=== PATIENT | female | born 1955 | race Caucasian/White ===

== ENCOUNTER 2022-10-23 19:59 | Observation (INO) | payer OTHER ==
[2022-10-23] MEDS ORDERED: ACETAMINOPHEN 1000 MG/100 ML BAG IVPB ONE (21:16)
[2022-10-23 21:36] LABS: BASO % 0.3 % (0-2.0); EOS % 0.6 % (0-4.5); HEMATOCRIT 37.6 % (32.4-45.2); HEMOGLOBIN 12.2 GM/dL (10.7-15.3); LYMPH % 15.8 % (8-40); MCH 28.8 pg (25.7-33.7); MCHC 32.4 g/dl (32.0-36.0); MEAN CELL VOLUME 88.7 fl (80-96); MEAN PLT VOLUME 9.9 fl (7.5-11.1); MONO % 3.3 % (3.8-10.2); PLATELET COUNT 122 10^3/uL (134-434); RBC 4.23 M/mm3 (3.60-5.2); RDW 15.7 % (11.6-15.6); WHITE BLOOD COUNT 7.2 K/mm3 (4.0-10.0)
[2022-10-23] MEDS ORDERED: ACETAMINOPHEN INJECTION 100 ML IVPB ONE (21:41)
[2022-10-23 21:47] LABS: INR 1.14 (0.83-1.09); PROTHROMBIN TIME (PATIENT) 13.2 SEC (9.7-13.0)
[2022-10-23] MEDS ORDERED: METOCLOPRAMIDE HCL INJECTION 10 MG/2 ML VIAL IVPUSH ONE (21:47)
[2022-10-23 21:49] LABS: ACTIVATED PTT 28.9 SECONDS (25.2-36.5)
[2022-10-23] MEDS ORDERED: CARVEDILOL 6.25 MG TABLET (FP) PO ONE (22:27)
[2022-10-23] MEDS ORDERED: LORazepam 2 MG/ML SDV VIAL IVPUSH ONE (22:31)
[2022-10-23 22:49] LABS: CALCIUM 9.1 mg/dL (8.5-10.1)
[2022-10-23 22:50] LABS: ALBUMIN 3.6 g/dl (3.4-5.0)
[2022-10-23] MEDS ORDERED: METOCLOPRAMIDE HCL INJECTION 10 MG/2 ML VIAL ONE (22:50)
[2022-10-23] MEDS ORDERED: CARVEDILOL 6.25 MG TABLET (FP) ONE (22:50)
[2022-10-23 22:53] LABS: CREATININE 6.4 mg/dL (0.55-1.3)
[2022-10-23 22:55] LABS: BILIRUBIN,TOTAL 0.4 mg/dL (0.2-1); TOT PROT 7.5 g/dl (6.4-8.2)
[2022-10-23 23:06] LABS: BLOOD UREA NITROGEN 38.3 mg/dL (7-18)
[2022-10-24] MEDS ORDERED: HEPARIN NA (PORCINE) 5,000 UNITS/ML 1ML VIAL SQ SCH (06:00)
[2022-10-24] MEDS ORDERED: ACETAMINOPHEN 325 MG TABLET (FP) PO PRN (07:55)
[2022-10-24 08:01] VITALS: BMI 22.7
[2022-10-24] MEDS ORDERED: NIFEdipine E.R 60 MG TABLET PO SCH (10:00)
[2022-10-24] MEDS ORDERED: CARVEDILOL 6.25 MG TABLET (FP) PO SCH (10:00)
[2022-10-24 11:08] LABS: BASO % 1.3 % (0-2.0); EOS % 1.1 % (0-4.5); HEMATOCRIT 35.4 % (32.4-45.2); HEMOGLOBIN 11.8 GM/dL (10.7-15.3); LYMPH % 49.9 % (8-40); MCH 30.1 pg (25.7-33.7); MCHC 33.4 g/dl (32.0-36.0); MEAN CELL VOLUME 90.1 fl (80-96); MEAN PLT VOLUME 10.4 fl (7.5-11.1); MONO % 7.8 % (3.8-10.2); NEUT % 39.9 % (42.8-82.8); PLATELET COUNT 124 10^3/uL (134-434); RBC 3.93 M/mm3 (3.60-5.2); RDW 15.7 % (11.6-15.6); WHITE BLOOD COUNT 4.3 K/mm3 (4.0-10.0)
[2022-10-24] MEDS ORDERED: LOSARTAN POTASSIUM 50 MG TABLET PO SCH (11:15)
[2022-10-24 11:26] LABS: CHLORIDE 102 mmol/L (98-107); SODIUM 136 mmol/L (136-145)
[2022-10-24 11:37] LABS: CALCIUM 8.8 mg/dL (8.5-10.1)
[2022-10-24 11:38] LABS: ANION GAP 10 MMOL/L (8-16); BLOOD UREA NITROGEN 45.7 mg/dL (7-18); CO2 23 mmol/L (21-32); GLUCOSE,RANDOM 120 mg/dL (74-106); MAGNESIUM 2.1 mg/dL (1.8-2.4)
[2022-10-24 11:39] LABS: ALBUMIN 3.2 g/dl (3.4-5.0)
[2022-10-24 11:40] LABS: SGOT/AST 20 U/L (15-37)
[2022-10-24 11:41] LABS: PHOSPHOROUS 3.8 mg/dL (2.5-4.9); SGPT/ALT 19 U/L (13-61)
[2022-10-24 11:42] LABS: BILIRUBIN,TOTAL 0.4 mg/dL (0.2-1); TOT PROT 6.8 g/dl (6.4-8.2)
[2022-10-24 11:43] LABS: ALK PHOS 54 U/L (45-117)
[2022-10-24 11:48] LABS: CREATININE 8.4 mg/dL (0.55-1.3)
[2022-10-24 13:27] VITALS: BP 150/84; PULSE 76; RESP 19; TEMP 98.7
[2022-10-24] MEDS ORDERED: ATORVASTATIN CA 20 MG TABLET (FP) PO SCH (22:00)
== END 2022-10-24 15:40 | disposition home or self-care (01) ==
LOC: JER 19:59 → JERBED 23:56 → J6S 10-24 03:30
PROVIDERS: ADMIT Internal Medicine; ATTEND Internal Medicine
PROC: 3E033NZ Introduction of Analgesics, Hypnotics, Sedatives into Peripheral Vein, Percutaneous Approach (ICD-10-PCS; principal; 2022-10-23)
PROC: 3E033GC Introduction of Other Therapeutic Substance into Peripheral Vein, Percutaneous Approach (ICD-10-PCS; 2022-10-23)
PROC: 3E013GC Introduction of Other Therapeutic Substance into Subcutaneous Tissue, Percutaneous Approach (ICD-10-PCS; 2022-10-23)
DX: I16.0 Hypertensive urgency (principal); I12.0 Hypertensive chronic kidney disease with stage 5 chronic kidney disease or end stage renal disease; R51.9 Headache, unspecified; N18.6 End stage renal disease; E78.5 Hyperlipidemia, unspecified; Z99.2 Dependence on renal dialysis; Z90.5 Acquired absence of kidney; Z85.528 Personal history of other malignant neoplasm of kidney
CPT/HCPCS: 0241U-QW; 36415; 70450-TC; 80053; 83735; 84100; 85025; 85027; 85610; 85730; 93005; 93010; 96372; 96374; 96375; 99285-25; G0378; J1644

== ENCOUNTER 2022-10-30 21:12 | Emergency (ER) | payer OTHER ==
[2022-10-30 21:20] VITALS: TEMP 98; BMI 21.9
[2022-10-30] MEDS ORDERED: SODIUM CHLORIDE 0.9% 500 ML INFUS.BAG IV ONE (21:58)
[2022-10-30] MEDS ORDERED: METOCLOPRAMIDE HCL INJECTION 10 MG/2 ML VIAL IVPB ONE (21:58)
[2022-10-30] MEDS ORDERED: METOCLOPRAMIDE HCL INJECTION 10 MG/2 ML VIAL ONE (22:11)
[2022-10-30 22:16] LABS: BASO % 0.4 % (0-2.0); EOS % 0.9 % (0-4.5); HEMATOCRIT 32.4 % (32.4-45.2); MCHC 33.8 g/dl (32.0-36.0); MEAN CELL VOLUME 88.5 fl (80-96); MEAN PLT VOLUME 9.1 fl (7.5-11.1); MONO % 3.9 % (3.8-10.2); NEUT % 80.8 % (42.8-82.8); PLATELET COUNT 133 10^3/uL (134-434); RBC 3.66 M/mm3 (3.60-5.2); RDW 16.2 % (11.6-15.6); WHITE BLOOD COUNT 8.5 K/mm3 (4.0-10.0)
[2022-10-30 22:39] LABS: CALCIUM 9.3 mg/dL (8.5-10.1)
[2022-10-30 22:40] LABS: ALBUMIN 3.7 g/dl (3.4-5.0); BLOOD UREA NITROGEN 28.7 mg/dL (7-18)
[2022-10-30 22:43] LABS: CREATININE 6.4 mg/dL (0.55-1.3)
[2022-10-30 22:44] LABS: BILIRUBIN,TOTAL 0.4 mg/dL (0.2-1); TOT PROT 7.6 g/dl (6.4-8.2)
[2022-10-30 22:56] LABS: MAGNESIUM 1.9 mg/dL (1.8-2.4)
[2022-10-30 23:00] LABS: PHOSPHOROUS 3.7 mg/dL (2.5-4.9)
[2022-10-30] MEDS ORDERED: ACETAMINOPHEN 1000 MG/100 ML BAG IVPB ONE (23:23)
[2022-10-30] MEDS ORDERED: ACETAMINOPHEN INJECTION 100 ML IVPB ONE (23:26)
[2022-10-30 23:33] VITALS: PULSE 90
[2022-10-31 00:35] VITALS: BP 164/84; RESP 20
== END 2022-10-31 00:39 | disposition home or self-care (01) ==
LOC: JER 21:12
PROC: 3E033NZ Introduction of Analgesics, Hypnotics, Sedatives into Peripheral Vein, Percutaneous Approach (ICD-10-PCS; principal; 2022-10-30)
PROC: 3E033GC Introduction of Other Therapeutic Substance into Peripheral Vein, Percutaneous Approach (ICD-10-PCS; 2022-10-30)
DX: R11.2 Nausea with vomiting, unspecified (principal); R51.9 Headache, unspecified; Z99.2 Dependence on renal dialysis
CPT/HCPCS: 36415; 70450-TC; 80053; 83690; 83735; 84100; 84484; 85025; 93005; 93010; 96374; 96375; 99285-25

== ENCOUNTER 2022-11-21 04:05 | Day surgery (SDC) | payer OTHER ==
[2022-11-20 08:43] VITALS: BMI 21.9
[~2022-11-21 04:05] MED LIST: HEPARIN NA (PORCINE) 5,000 UNITS/ML 1ML VIAL TP ONE; LIDOCAINE HCL 1%, 10 MG/ML (20ML VIAL) NR ONE
[2022-11-21] MEDS ORDERED: LIDOCAINE HCL 1%, 10 MG/ML (10ML VIAL) MDV ONE (07:13)
[2022-11-21] MEDS ORDERED: PAPAVERINE HCL 30 MG/1 ML 10 ML VIAL NR ONE (07:13)
[2022-11-21] MEDS ORDERED: HEPARIN NA (PORCINE) 5,000 UNITS/ML 1ML VIAL ONE (07:14)
[2022-11-21] MEDS ORDERED: POVIDONE-IODINE OINTMENT 10% - 28.4 GM TUBE ONE (07:14)
[2022-11-21] MEDS ORDERED: MIDAZOLAM HCL 2 MG/2 ML SINGLE DOSE VIAL ONE (07:27)
[2022-11-21] MEDS ORDERED: PROPOFOL 40 ML ONE (07:27)
[2022-11-21] MEDS ORDERED: ceFAZolin SODIUM 1 GM VIAL IVPB ONE (08:06)
[2022-11-21] MEDS ORDERED: LIDOCAINE HCL 1%, 10 MG/ML (20ML VIAL) NR ONE (08:15)
[2022-11-21] MEDS ORDERED: HEPARIN NA (PORCINE) 5,000 UNITS/ML 1ML VIAL TP ONE (08:42)
[2022-11-21] MEDS ORDERED: PROPOFOL 20 ML ONE (09:04)
[2022-11-21] MEDS ORDERED: oxyCODONE HCL 5 MG TABLET PO PRN (09:29)
[2022-11-21] MEDS ORDERED: PROMETHAZINE HCL 25 MG/1 ML VIAL IVPB PRN (09:29)
[2022-11-21] MEDS ORDERED: ONDANSETRON 4 MG/2 ML VIAL IVPUSH PRN (09:29)
[2022-11-21] MEDS ORDERED: ACETAMINOPHEN 325 MG TABLET (FP) PO PRN (09:29)
[2022-11-21 10:47] VITALS: PULSE 62
[2022-11-21 10:48] VITALS: TEMP 97.7
[2022-11-21] MEDS ORDERED: oxyCODONE HCL 5 MG TABLET ONE (12:25)
[2022-11-21 13:51] VITALS: BP 125/65; RESP 20
== END 2022-11-21 13:00 | disposition home or self-care (01) ==
LOC: JASU-SURG 04:05
PROVIDERS: ATTEND Surgery
PROC: 03WY0JZ Revision of Synthetic Substitute in Upper Artery, Open Approach (ICD-10-PCS; principal; 2022-11-21 08:00)
DX: T82.858A Stenosis of other vascular prosthetic devices, implants and grafts, initial encounter (principal); I12.0 Hypertensive chronic kidney disease with stage 5 chronic kidney disease or end stage renal disease; N18.6 End stage renal disease; Z99.2 Dependence on renal dialysis; I77.0 Arteriovenous fistula, acquired; Y82.8 Other medical devices associated with adverse incidents; Y92.9 Unspecified place or not applicable; Y83.8 Other surgical procedures as the cause of abnormal reaction of the patient, or of later complication, without mention of misadventure at the time of the procedure
CPT/HCPCS: 36415; 84132; 94760; J1644

== ENCOUNTER → 2024-08-20 | Day surgery (SDC) | payer OTHER ==
[2024-08-17 17:13] VITALS: BMI 22.4
[~2024-08-20] MED LIST changes: +ACETAMINOPHEN INJECTION 100 ML ONE; +DEXAMETHASONE SOD PHOSPHATE 4 MG/1 ML VIAL ONE; -HEPARIN NA (PORCINE) 5,000 UNITS/ML 1ML VIAL TP ONE; +KETOROLAC TROMETHAMINE 30 MG/1 ML VIAL ONE; -LIDOCAINE HCL 1%, 10 MG/ML (20ML VIAL) NR ONE; +LIDOCAINE HCL/PF 2% SDV 5ML VIAL ONE; +MIDAZOLAM HCL 2 MG/2 ML SINGLE DOSE VIAL ONE; +ONDANSETRON 4 MG/2 ML VIAL IVPUSH PRN; +ONDANSETRON 4 MG/2 ML VIAL ONE; +PROMETHAZINE HCL 25 MG/1 ML VIAL IVPB PRN; +PROPOFOL 20 ML ONE; +ceFAZolin SODIUM 1 GM VIAL ONE; +oxyCODONE HCL 5 MG TABLET ONE; +oxyCODONE HCL 5 MG TABLET PO PRN
[2024-08-20] MEDS: BACITRACIN ZINC 15 GM TUBE TOPICAL OINTMENT TP ONE
[2024-08-20] MEDS: LIDOCAINE HCL 1%, 10 MG/ML (20ML VIAL) INF ONE
[2024-08-20] MEDS: ceFAZolin 2 GRAM PREMIX BAG IVPB ONE (10:12)
[2024-08-20] MEDS: ACETAMINOPHEN 1000 MG/100 ML BAG IVPB ONE (11:22)
[2024-08-20] MEDS: LACTATED RINGERS SOLUTION 1,000 ML IV SCH (11:24)
[2024-08-20 12:15] VITALS: TEMP 97.6
[2024-08-20] MEDS: oxyCODONE HCL 5 MG TABLET PO PRN (12:48)
[2024-08-20 13:20] VITALS: BP 110/58; PULSE 80; RESP 18
== END | disposition home or self-care (01) ==
LOC: JASU-SURG 04:17
PROVIDERS: ATTEND Surgery
PROC: 03LC0ZZ Occlusion of Left Radial Artery, Open Approach (ICD-10-PCS; principal; 2024-08-20 09:30)
DX: T82.898A Other specified complication of vascular prosthetic devices, implants and grafts, initial encounter (principal); Z85.528 Personal history of other malignant neoplasm of kidney; Z90.5 Acquired absence of kidney; Z99.2 Dependence on renal dialysis; Y83.8 Other surgical procedures as the cause of abnormal reaction of the patient, or of later complication, without mention of misadventure at the time of the procedure; Y92.89 Other specified places as the place of occurrence of the external cause
CPT/HCPCS: 36415; 84132; 94760; J0131

== ENCOUNTER 2025-05-18 20:16 | Emergency (ER) | payer OTHER ==
[2025-05-18 20:47] VITALS: TEMP 98; BMI 23.3
[2025-05-18] MEDS ORDERED: ACETAMINOPHEN 325 MG TABLET (FP) ONE (21:39)
[2025-05-18] MEDS: ACETAMINOPHEN 500 MG TABLET (FP) PO ONE (21:53)
[2025-05-18 22:32] LABS: ABSOLUTE IMMATURE GRANULOCYTES 0.00 x10^3/uL (0.0-0.031); BASOPHILS # 0.03 x10^3/uL (0.01-0.08); EOSINOPHIL % 3.4 % (0.7-5.8); EOSINOPHILS # 0.13 x10^3/uL (0.04-0.36); MCHC 33.0 g/dl (32.2-35.5); MEAN CELL VOLUME 94.3 fl (79.4-94.8); MEAN PLT VOLUME 12.5 fl (9.4-12.3); MONOCYTE # 0.31 x10^3/uL (0.24-0.86); MONOCYTE % 8.1 % (4.7-12.5); RDW 14.4 % (12.4-16.4)
[2025-05-18 23:10] LABS: GLUCOSE,RANDOM 89 mg/dL (74-106)
[2025-05-18 23:11] LABS: TOT PROT 6.1 g/dl (6.4-8.2)
[2025-05-18 23:12] LABS: CO2 21 mmol/L (21-32)
[2025-05-18 23:13] LABS: ALK PHOS 90 U/L (40-150)
[2025-05-18 23:16] LABS: CREATININE 13.22 mg/dL (0.55-1.3); SGOT/AST 18 U/L (5-34); SGPT/ALT 9 U/L (0-55)
[2025-05-18] MEDS ORDERED: MAGNESIUM 1GM/D5W - 1 GM/100 ML IVPB IVPB ONE (23:30)
[2025-05-18] MEDS ORDERED: METOCLOPRAMIDE HCL INJECTION 10 MG/2 ML VIAL ONE (23:30)
[2025-05-18] MEDS: METOCLOPRAMIDE HCL INJECTION 10 MG/2 ML VIAL IVPB ONE (23:39)
[2025-05-18] MEDS: MAGNESIUM 1GM/D5W - 1 GM/100 ML IVPB IVPB ONE (23:39)
[2025-05-19 00:11] VITALS: BP 137/83; PULSE 75; RESP 16
== END 2025-05-19 00:13 | disposition home or self-care (01) ==
LOC: JER 20:16
PROC: 3E033GC Introduction of Other Therapeutic Substance into Peripheral Vein, Percutaneous Approach (ICD-10-PCS; principal; 2025-05-18)
PROC: 3E033GC Introduction of Other Therapeutic Substance into Peripheral Vein, Percutaneous Approach (ICD-10-PCS; 2025-05-18)
DX: R51.9 Headache, unspecified (principal); R11.0 Nausea; R63.8 Other symptoms and signs concerning food and fluid intake; H53.149 Visual discomfort, unspecified; M79.89 Other specified soft tissue disorders
CPT/HCPCS: 36415; 70450-TC; 80053; 83735; 84100; 85025; 96365; 96375; 99285-25